=== PATIENT | male | born 1995 | race Caucasian/White ===

== ENCOUNTER → 2016-07-28 | Outpatient (CLI) | payer MEDICAID ==
[~2016-07-28] MED LIST: AMOXICOT500 M1 PO; AMOXICOT500 MG PO
[2016-07-31 09:36] LABS: Neisseria gonorrhoeae, NAA Negative (Negative)
== END ==
LOC: LAB 13:07
PROVIDERS: Internal Medicine Adolescent Medicine
DX: Z20.2 Contact with and (suspected) exposure to infections with a predominantly sexual mode of transmission (principal)

== ENCOUNTER 2017-01-14 12:28 | Emergency (ER) | payer MEDICAID ==
[~2017-01-14] VITALS: Ht 170.2 cm; Wt 52.6 kg
[~2017-01-14 12:28] MED LIST changes: +DICLOFENAC 50MG50 MG PO; +ROBAXIN500 M1 PO
--- NOTE | 2017-01-14 13:50 | Urgent Treatment Center Report ---
History of Present Issue Date/Time Seen by Provider 01/14/17 1320 Visit Reason Pt arrived:Walked Presenting Problem:COUGH, CONGESTION, SINUSES X1 WEEK Location if Accident: Onset of symptoms date/time:/ or onset unknown for:MEDICAL HX UNKNOWN Have you (or family members/close friends) recently traveled outside the [place]? N If Yes, where/when: Have you had exposure to infectious disease within the past month? TB? Other? Specify: Here requesting a work note because had to leave today due to diarrhea. sinusitis x 2 weeks, seen at last week, dx "severe sinusitis". Started on amoxicillin. Improving. Here d/t diarrhea and not sinusitis "because that is getting better. I still have 5 more days of the antibiotic". Diarrhea x 2 weeks. Has taken amoxicillin mulitple times in the past without diarrhea. Denies any change that it is augmentin or amoxicillin slash another name and adament it is "just plain amoxicillin. I am sure of that." Diarrhea described as 4-6 times/day , loose, brown, no mucous, no blood, no abnormal odor. No known sick contacts. Hasn't taken or tried anything for symptoms. Source patient Exam Limitations no limitations ALLERGIES Coded Allergies: codeine (MAKES HYPERACTIVE 04/03/15) Home Medications Active Scripts DICLOFENAC SODIUM (Diclofenac 50MG) 50 MG PO BID #40 TAB Prov: 09/01/16 Methocarbamol (Robaxin) 500 MG PO BID #40 TAB Prov: 09/01/16 Amoxicillin (Amoxicillin 500MG) 500 MG PO BID 7 Days Prov: 04/03/15 History Medical History General CAD? No Angina: No [place]: No Hypertension? No Hyperlipidemia? No CHF? No DVT? No PE? No COPD? No Asthma? No Anemia? No GERD? No Gastric ulcers? No GI Bleed? No Hernia? No Thyroid Problems? No Hypothyroidism? No CVA? No Seizures? No Diabetes? No Renal Insuffiency? No UTI? No Stones? No GB Disease: No Nephritic Syndrome? No Asplenia? No Hepatitis? No Sickle Cell Disease? No Arthritis? No Migraines? No Cataracts? No Glaucoma? No MRSA? No HIV? No TB? No Anxiety? No Depression? No Cancer? No Immunization HX DT/Tetanus 5-10 Years Ago Surgical Hx Previous Surgery?N Social History Smoking Hx Smoker: Never Smoker Tobacco: No Alcohol Alcohol: Yes Review of Systems All Other Systems Reviewed and Negative (as appropriate for CC) Constitutional denies chills, denies fever, denies malaise ENT other (improving). Respiratory denies shortness of breath Gastrointestinal see HPI, denies abdominal pain, denies nausea, denies vomiting Genitourinary denies: dysuria, frequency. Skin denies rash Psychiatric/Neurological denies headache Physical Exam Vital Signs Vital Signs Date Time Temp Pulse Resp B/P Pulse O2 O2 Flow FiO2 Ox Delivery Rate 01/14 1300 98.6 67 18 125/82 98 General Appearance normal appearance, no apparent distress Ear, Nose, Throat nasal congestion, naina EACs and TMs normal, clear PND, no sinus tenderness Neck non-tender, supple Respiratory Status No: respiratory distress, productive cough, non productive cough. Lung Sounds anterior: lungs clear. posterior: lungs clear. bilateral: lungs clear. Cardiovascular regular rate/rhythm, no peripheral edema, no murmur Gastrointestinal normal bowel sounds, non tender, soft Neurologic alert, oriented x 3 Mental status normal mood/affect Skin normal color, warm/dry Lymphatic no adenopathy Medical Decision Making LABS/Meds/Orders Pt receiving controlled substance in ED? No Progress [facility] Progress Notes Date 01/14/17 Comment Discussed stool sample today or sending pt home w/ supplies to collect sample. pt here primarily for work excuse and declines this. States he wants to try probiotic and if no better, will then follow up but right no, doesn't feel any additional work-up or change in medication is necessary. Departure Departure Time of Disposition 1347 Disposition DC Home or Self Care(routine) Clinical Impression Primary Impression: Diarrhea Qualifiers: Diarrhea type: unspecified type Qualified Code: R19.7 - Diarrhea, unspecified Secondary Impressions: Encounter to obtain excuse from work Condition STABLE Referrals NO REFERRAL Follow up with primary care for new, worsening or persistant symptoms. If you decide to have your stool tested, you will have to return for follow up appointment. Patient Instructions Diarrhea Additional Instructions Continues lots of fluids like gatorade or powerade, no caffeine like soda or tea Add probiotics daily. Ask pharmacist to show you these as they are over the counter if symptoms persist or do not continue to improve, be sure to follow up Discharge Counseling Counseled pt/family regarding diagnosis, medications/RX, home care, follow up needs at [phone]
[2017-01-14 13:53] VITALS: BP 125/82
--- OUTSIDE RECORDS SUMMARY | 2017-01-14 13:57 | External Medical Summary Rpt | CCD ---
Author Author , NIEVES Organization NIEVES Address Unknown Phone [email or web address] Care Team Providers Care Director Of Sales Name Role Phone ALFARIS MOH, ALFARIS Unavailable Unavailable MOH PERALTA TER, PERALTA TER Unavailable Unavailable BESSON, BESSON Unavailable Unavailable KOENIG, KOENIG Unavailable Unavailable [facility] Unavailable Unavailable INC, [facility], Unavailable Unavailable [facility] Unavailable Unavailable [facility], Unavailable Unavailable PLL[facility], [facility] MELODIE EISENBERG, Unavailable Unavailable SOTINGHARRIET BAILEY JR, LEO HADLEY Unavailable Unavailable Purpose Continuity of Care Document - 08-26-2013 through 2016 Problems Code Diagnosis DOS Provider Status Z202 CONTACT 07-28-2016 [facility] EXPOSURE INTERNAL INFECT MED SEXUAL MODE TRANSMS B359 DERMATOPHYT 05-26-2016 [facility] UNSPECIFIED INTERNAL MED J029 ACUTE 04-10-2015 [facility] UNSPECIFIED J0390 ACUTE 04-03-2015 [facility] UNSPECIFIED 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 0340 STREPTOCOCC 10-03-2014 [facility] 75144 UNSPECIFIED 10-03-2014 [facility] ANKLE PLL[facility] SPRAIN AND STRAIN 26571 CONTACT 08-26-2013 [facility] OTHER INC ECZEMA DUE TO SUNBURN Medications Na ND Rx Da Fi Fi Am Da Di Ph RX Ph St me C No te ll ll ou ys ag ar # ys at rm s nt no ma ic us Or Da si cy ia de te s n re d ME 00 06 07 40 20 00 HO Ac TH 14 -0 -0 .0 00 ME ti OC 31 9- 7- 00 06 TO ve AR 29 20 20 08 WN BA 00 17 17 86 MO 1 88 PH L AR 50 MA 0 CY MG OF TA BL CY ET NT HI AN A DI 61 06 07 40 20 00 HO Ac CL 44 -0 -0 .0 00 ME ti OF 20 9- 7- 00 06 TO ve EN 10 20 20 08 WN AC 20 17 17 86 1 87 PH SO AR D MA DR CY 50 OF MG CY NT TA HI B AN A AM 00 05 06 20 10 00 HO Ac OX 78 -2 -1 .0 00 ME ti IC 12 4- 6- 00 06 TO ve IL 61 20 20 08 WN LI 30 17 17 77 N 5 01 PH 50 AR 0 MA MG CY CA OF PS UL CY E NT HI AN A BR 64 05 06 18 3 00 HO Ac OM 37 -2 -1 0. 00 ME ti PH 60 4- 6- 00 06 TO ve EN 65 20 20 0 08 WN IR 71 17 17 77 -P 6 02 PH SE AR UD MA OE CY PH ED OF -D M CY SY NT R HI AN A AM 00 04 05 14 7 00 WA Ac OX 09 -2 -2 .0 00 L- ti IC 33 7- 6- 00 07 MA ve IL 10 20 20 48 RT LI 90 17 17 49 N 5 31 PH 50 AR 0 MA MG CY CA #5 PS 91 UL E ON 57 04 05 9. 3 00 WA Ac DA 23 -2 -2 00 00 L- ti NS 70 7- 6- 0 07 MA ve ET 07 20 20 48 RT RO 71 17 17 03 N 0 34 PH OD AR T MA 4 CY MG #5 TA 91 BL ET CL 00 03 03 45 10 00 HO Ac OT 16 -0 -3 .0 00 ME ti RI 80 3- 1- 00 06 TO ve MA 25 20 20 08 WN ZO 84 17 17 24 LE 6 94 PH -B AR ET MA AM CY ET GARCIA OF SO NE CY NT CR HI M AN A Procedures Procedure [place] [address] [facility] INC GROUP A INITIAL [address] [place] 1ST 4 MOH MOH DEGREE BURN LOCAL [place] Encounters Encounter Start End Date Code Location Performer Type Date OFFICE 73127 [facility] 7 7 [facility] T VISIT INTERNAL 15 MED MINUTES OFFICE 45192 [facility] 7 7 [facility] T NEW 20 INTERNAL MINUTES MED OFFICE [address] [facility] [address] OUTPATIEN 6 6 PHYSICIAN T NEW 30 S GROUP [facility] BING - 6 6 [facility] OUTPATIEN INC T EMERGENCY 84634 [facility] BAILEY JR 6 6 PHYSICIAN DEPARTMEN [facility] T VISIT MODERATE SEVERITY EMERGENCY [address] [facility]/M IN[facility] PROB HOSPITAL BING - 5 5 [facility] INC T EMERGENCY [address] [facility] T VISIT LIMITED/M INOR PROB EMERGENCY 12215 [facility] CORBIN 5 5 PHYSICIAN U FAINA DEPARTMEN [facility] T VISIT MODERATE SEVERITY EMERGENCY [address] [facility] T VISIT LIMITED/M INOR PROB EMERGENCY 66695 ALFARIS ALFARIS 4 4 [facility] DEPARTMEN T VISIT MODERATE SEVERITY HOSPITAL BING - 4 4 [facility] OUTPATIEN INC T
--- OUTSIDE RECORDS SUMMARY | 2017-01-14 13:57 | External Medical Summary Rpt | CCD ---
Author Author , NIEVES Organization NIEVES Address Unknown Phone [email or web address] Care Team Providers Care Electromechanical Equipment Assembler Name Role Phone ALFARIS MOH, ALFARIS Unavailable Unavailable MOH PERALTA TER, PERALTA TER Unavailable Unavailable BESSON, BESSON Unavailable Unavailable KOENIG, KOENIG Unavailable Unavailable [facility] Unavailable Unavailable INC, [facility], [facility]available Unavailable [facility] Unavailable Unavailable [facility], Unavailable Unavailable PLL[facility], [facility] MELODIE EISENBERG, Unavailable Unavailable SOTINGHARRIET BAILEY JR, LOE HADLEY Unavailable Unavailable Purpose Continuity of Care Document - 08-26-2013 through 2016 Problems Code Diagnosis DOS Provider Status Z202 CONTACT 07-28-2016 [facility] EXPOSURE INTERNAL INFECT MED SEXUAL MODE TRANSMS B359 DERMATOPHYT 05-26-2016 [facility] UNSPECIFIED INTERNAL MED J029 ACUTE 04-10-2015 [facility] UNSPECIFIED J0390 ACUTE 04-03-2015 [facility] UNSPECIFIED [id number] PERSONAL 04-03-2015 [facility] NICOTINE INC DEPENDENCE 0340 STREPTOCOCC 10-03-2014 [facility] 07745 UNSPECIFIED 10-03-2014 [facility] SPRAIN AND STRAIN 46922 CONTACT 08-26-2013 [facility] OTHER [...] Procedure [place] [address] [facility] STREPT[facility] CCUS INC INC GROUP A INITIAL 30478 [place] ALFARIS [place] 1ST 4 MOH MOH DEGREE BURN LOCAL [place] Encounters Encounter Start End Date Code Location Performer Type Date OFFICE 33223 [facility] 7 7 [facility] T VISIT INTERNAL 15 MED MINUTES OFFICE 66416 [facility] 7 7 [facility] T NEW 20 INTERNAL MINUTES MED OFFICE 90919 [facility] TER OUTPATIEN 6 6 PHYSICIAN T NEW 30 S GROUP [facility] BING - 6 6 [facility] OUTPATIEN INC T EMERGENCY 87224 [facility] BAILEY JR 6 6 PHYSICIAN DEPARTMEN [facility] T VISIT MODERATE SEVERITY EMERGENCY 61509 BING 6 6 [facility]/M IN[facility] PROB HOSPITAL BING - 5 5 [facility] OUTPATIEN INC T EMERGENCY 24466 [facility]ING 5 5 [facility] T VISIT LIMITED/M INOR PROB EMERGENCY 87389 [facility] CORBIN 5 5 PHYSICIAN U FAINA DEPARTMEN [facility] T VISIT MODERATE SEVERITY EMERGENCY 31262 [facility] 4 4 [facility] T VISIT LIMITED/M INOR PROB EMERGENCY 15075 ALFARIS ALFARIS 4 4 [facility] DEPARTMEN T VISIT MODERATE SEVERITY HOSPITAL BING - 4 4 [facility] OUTPATIEN INC T
--- OUTSIDE RECORDS SUMMARY | 2017-01-14 13:58 | External Medical Summary Rpt ---
Author Author NIEVES Dickson, [employer] Organization [employer] Address Unknown Phone Unavailable
--- OUTSIDE RECORDS SUMMARY | 2017-01-14 13:58 | External Medical Summary Rpt | CCD ---
Author Author , NIEVES Antony NIEVES Address Unknown Phone [email or web address] Care Team Providers Care Compliance Investigator Name Role Phone ALFARIS MOH, ALFARIS Unavailable Unavailable MOH PERALTA TER, PERALTA TER Unavailable Unavailable BESSON, BESSON Unavailable Unavailable KOENIG, KOENIG Unavailable Unavailable [facility] Unavailable Unavailable INC, [facility], Unavailable Unavailable [facility] Unavailable Unavailable [facility], [facility], Unavailable Unavailable PLL[facility], [facility] MELODIE EISENBERG, Unavailable Unavailable MELODIE BAILEY JR, LEO HADLEY Unavailable Unavailable Purpose Continuity of Care Document - 08-26-2013 through 2016 Problems Code Diagnosis DOS Provider Status Z202 CONTACT 07-28-2016 [facility] EXPOSURE INTERNAL INFECT MED SEXUAL MODE TRANSMS B359 DERMATOPHYT 05-26-2016 [facility] UNSPECIFIED INTERNAL MED J029 ACUTE 04-10-2015 [facility] UNSPECIFIED J0390 ACUTE 04-03-2015 [facility] TON[facility]LL[facility]IS PHYSICIANS, PLLC UNSPECIFIED [id number] PERSONAL 04-03-2015 [facility] NICOTINE INC DEPENDENCE 0340 STREPTOCOCC 10-03-2014 [facility] 29487 UNSPECIFIED 10-03-2014 [facility] SPRAIN AND STRAIN 73989 CONTACT 08-26-2013 [facility] OTHER INC ECZEMA DUE TO SUNBURN Medications Na ND Rx Da Fi Fi Am Da Di Ph RX Ph St me C No te ll ll ou ys ag ar # ys at rm s nt no ma ic us Or Da si cy ia de te s n re d DI 61 06 07 40 20 00 HO Ac CL 44 -0 -0 .0 00 ME ti OF 20 9- 7- 00 06 TO ve EN 10 20 20 08 WN AC 20 17 17 86 1 87 PH SO AR D MA DR MENENDEZ 50 OF MG CY NT TA HI B AN A ME 00 06 07 40 20 00 HO Ac TH 14 -0 -0 .0 00 ME ti OC 31 9- 7- 00 06 TO ve AR 29 20 20 08 WN BA 00 17 17 86 MO 1 88 PH L AR 50 MA 0 CY MG OF TA BL CY ET NT HI AN A AM 00 05 06 20 [...] Procedure DOS [place] [address] [facility] CCUS INC INC GROUP A INITIAL 27657 ALFARIS ALFARIS TX 1ST 4 MOH MOH DEGREE BURN LOCAL TX Encounters Encounter Start End Date Code Location Performer Type Date OFFICE 29569 [facility] 7 7 [facility] T VISIT INTERNAL 15 MED MINUTES OFFICE 43054 [facility] 7 7 [facility] T NEW 20 INTERNAL MINUTES MED OFFICE [address] [facility] [address] OUTPATIEN 6 6 PHYSICIAN T NEW 30 S GROUP MINUTES HOSPITAL BING - 6 6 [facility] OUTPATIEN [facility] T EMERGENCY 74171 BING 6 6 [facility] T VISIT LIMITED/M INOR PROB EMERGENCY 12797 DONAL[facility] BAILEY JR 6 6 PHYSICIAN [facility] [employer] T VISIT MODERATE SEVERITY EMERGENCY 52567 BING 5 5 [facility] T VISIT LIMITED/M INOR PROB EMERGENCY 89255 DON[facility] CORBIN 5 5 PHYSICIAN U [facility] T VISIT MODERATE SEVERITY HOSPITAL BING - 5 5 [facility] OUTPATIEN [facility] BING - 4 4 [facility] OUTSAINT [facility] T EMERGENCY 40203 ALFARIS ALFARIS 4 4 [facility] T VISIT MODERATE SEVERITY EMERGENCY 36974 BING 4 4 [facility] T VISIT LIMITED/M INOR PROB
--- OUTSIDE RECORDS SUMMARY | 2017-01-14 13:58 | External Medical Summary Rpt | CCD ---
Author Author , NIEVES Antony NIEVES Address Unknown Phone [email or web address] Care Team Providers Care Real Estate Developer Name Role Phone ALFARIS MOH, ALFARIS Unavailable Unavailable MOH PERALTA TER, PERALTA TER Unavailable Unavailable BESSON, BESSON Unavailable Unavailable KOENIG, KOENIG Unavailable Unavailable [facility] Unavailable Unavailable INC, [facility], Unavailable Unavailable [facility] Unavailable Unavailable [...] VALLEY UNSPECIFIED INTERNAL MED J029 ACUTE 04-10-2015 [facility]NG[facility]IS PH[facility]ANS GROUP UNSPECIFIED J0390 ACUTE 04-03-2015 [facility]LL[facility]IS PHYSICIANS, PLLC UNSPECIFIED [id number] PERSONAL 04-03-2015 [facility] NICOTINE INC DEPENDENCE 0340 STREPTOCOCC 10-03-2014 [facility] 23204 UNSPECIFIED 10-03-2014 [facility] ANKLE PLL[facility] SPRAIN AND STRAIN 21210 CONTACT 08-26-2013 [facility] OTHER [...] Procedure DOS [place] [address] [facility] CCUS INC INC GROUP A INITIAL 52977 AL[place]ARIS ALFARIS TX 1ST 4 MOH MOH DEGREE BURN LOCAL [place] Encounters Encounter Start End Date Code Location Performer Type Date OFFICE 51971 [facility] 7 7 [facility] T VISIT INTERNAL 15 MED MINUTES OFFICE 34775 [facility] 7 7 [facility] T NEW 20 INTERNAL MINUTES MED OFFICE [address] [facility] [address] [address] OUTPATIEN 6 6 PHYSICIAN T NEW 30 S GROUP MINUTES HOSPITAL BING - 6 6 [facility] OUTPATIEN [facility] T EMERGENCY 87815 BING 6 6 [facility] T VISIT LIMITED/M INOR PROB EMERGENCY 73218 DONAL[facility] BAILEY JR 6 6 PHYSICIAN [facility] T VISIT MODERATE SEVERITY EMERGENCY 37858 BING 5 5 [facility]NOTE 3[facility] T VISIT LIMITED/M INOR PROB EMERGENCY 89287 DON[facility] CORBIN 5 5 PHYSICIAN U [facility] T VISIT MODERATE SEVERITY HOSPITAL BING - 5 5 [facility] OUTPATIEN [facility] BING - 4 4 [facility] T EMERGENCY 36641 ALFARIS ALFARIS 4 4 [facility] T VISIT MODERATE SEVERITY EMERGENCY 15150 BING 4 4 [facility]NOTE 3[facility] T VISIT LIMITED/M INOR PROB
--- OUTSIDE RECORDS SUMMARY | 2017-01-14 13:58 | External Medical Summary Rpt | CCD ---
Author Author , SATYAMITCH Arpan NIEVES Address Unknown Phone [email or web address] Immunization Name Date Rout CVX Reac Dose Comm Prov Is Faci e tion ent ider Refu lity Give sed n MCV4 03-2 147 999 Hist H149 No H149 UF 1-20 oric 11 al Info rmat ion - Sour ce Unsp ecif ied Vari 03-2 21 999 Hist H149 No H149 cell 1-20 oric a 11 al Info rmat ion - Sour ce Unsp ecif ied Tdap 04-0 115 999 Hist H149 No H149 , 9-20 oric Adso 08 al rbed Info rmat ion - Sour ce Unsp ecif ied Slade 10-1 2 999 Hist H149 No H149 o-OP 5-19 oric V 99 al Info rmat ion - Sour ce Unsp ecif ied MMR 10-1 3 999 Hist H149 No H149 5-19 oric 99 al Info rmat ion - Sour ce Unsp ecif ied DTaP 10-1 107 999 Hist H149 No H149 , UF 5-19 oric 99 al Info rmat ion - Sour ce Unsp ecif ied Hep 04-2 8 999 Hist H149 No H149 B, 1-19 oric ped/ 99 al adol Info rmat ion - Sour ce Unsp ecif ied Vari 02-1 21 999 Hist H149 No H149 cell 4-19 oric a 97 al Info rmat ion - Sour ce Unsp ecif ied MMR 01-0 3 999 Hist H149 No H149 7-19 oric 97 al Info rmat ion - Sour ce Unsp ecif ied DTP- 01-0 22 999 Hist H149 No H149 Hib 7-19 oric 97 al Info rmat ion - Sour ce Unsp ecif ied Hep 10-2 8 999 Hist H149 No H149 B, 1-19 oric ped/ 96 al adol Info rmat ion - Sour ce Unsp ecif ied DTP- 05-0 22 999 Hist H149 No H149 Hib 7-19 oric 96 al Info rmat ion - Sour ce Unsp ecif ied Slade 05-0 2 999 Hist H149 No H149 o-OP 7-19 oric V 96 al Info rmat ion - Sour ce Unsp ecif ied
--- OUTSIDE RECORDS SUMMARY | 2017-01-14 13:58 | External Medical Summary Rpt | CCD ---
Author Author , SATYAMITCH Arpan NIEVES Address Unknown Phone [email or web address] Immunization Name Date Rout CVX Reac Dose [...]
== END 2017-01-14 13:54 | disposition home or self-care (01) ==
LOC: UTC 12:28
DX: R19.7 Diarrhea, unspecified (principal); Z88.6 Allergy status to analgesic agent